=== PATIENT | male | born 2000 | race Caucasian/White ===

== ENCOUNTER 2019-06-11 14:50 | Emergency (ER) | payer OTHER ==
[~2019-06-11] VITALS: Ht 188 cm; Wt 108.0 kg
[2019-06-11 14:57] VITALS: Ht 188 cm; Wt 108.0 kg
[2019-06-11 16:20] VITALS: BP 118/68
== END 2019-06-11 16:30 | disposition home or self-care (01) ==
LOC: ED 14:50
DX: S61.202A Unspecified open wound of right middle finger without damage to nail, initial encounter (principal); W26.8XXA Contact with other sharp object(s), not elsewhere classified, initial encounter; Y93.89 Activity, other specified; Y92.89 Other specified places as the place of occurrence of the external cause; Y99.8 Other external cause status
CPT/HCPCS: 90715; Q0092